=== PATIENT | female | born 1985 | race Caucasian/White ===

== ENCOUNTER 2023-04-30 01:53 | Emergency (ER) | payer BC ==
[2023-04-30] MEDS ORDERED: Gentamicin 0.3% Ophth Soln 5 ML Bottle ONE (02:28)
[2023-04-30] MEDS ORDERED: Cefdinir 300 MG Cap PO ONE (02:46)
[2023-04-30] MEDS ORDERED: Gentamicin 0.3% Ophth Soln 5 ML Bottle EYEBOTH SCH ×2 (09:00)
== END 2023-04-30 03:04 | disposition home or self-care (01) ==
LOC: JD.ED 01:53
DX: H10.023 Other mucopurulent conjunctivitis, bilateral (principal); J32.9 Chronic sinusitis, unspecified; J40 Bronchitis, not specified as acute or chronic; Z88.0 Allergy status to penicillin; Z88.1 Allergy status to other antibiotic agents; Z79.899 Other long term (current) drug therapy
CPT/HCPCS: 71045; 99283; A9270